=== PATIENT | male | born 1965 ===

== ENCOUNTER 2018-11-27 10:44 | Emergency (ER) | payer BC ==
[2018-11-27 10:49] VITALS: BMI 27.9
[2018-11-27 10:51] VITALS: RESP 18
--- NOTE | 2018-11-27 12:43 | C.PDOC ---
History Of Present Illness Patient is a 53 year old male who presents to the ED for evaluation of a fever of 101, sore throat and body aches. Patient reports that his sore throat began 3 days ago and he went to his PMD who gave him Levaquin which he started yesterday. He reports that today he had a fever of 99.2 and he took Motrin 800mg [employer]. He denies any cough, sinus congestion, CP, nausea, vomiting, diarrhea, constipation, neck pain, neck stiffness, or rash. Denies any urinary symptoms. No sick contacts or recent travel. Time Seen by Provider: 11/27/18 11:06 Chief Complaint (Nursing): Flu-like Symptoms History Per: Patient History/Exam Limitations: no limitations Onset/Duration Of Symptoms: Days (3) Current Symptoms Are (Timing): Still Present Associated Symptoms: Fever, Sore Throat, Nasal Congestion. denies: Neck Pain, Nausea, Vomiting, Diarrhea Recent travel outside of the [place]: No Additional History Per: Patient Past Medical History Reviewed: Historical Data, Nursing Documentation, Vital Signs Vital Signs: Last Vital Signs Temp 99.2 F 11/27/18 11:41 Pulse 105 H 11/27/18 10:49 Resp 18 11/27/18 10:49 BP 127/83 11/27/18 10:49 Pulse Ox 96 11/27/18 10:49 Primary Care Provider: Robert Saunders - Medical History PMH: No Chronic Diseases Surgical History: No Surg Hx Family History: States: No Known Family Hx - Social History Hx Alcohol Use: No Hx Substance Use: No - Immunization History Hx Influenza Vaccination: No Hx Pneumococcal Vaccination: No Review Of Systems Except As Marked, All Systems Reviewed And Found Negative. Constitutional: Positive for: Fever, Other (body aches) ENT: Positive for: Throat Pain. Negative for: Nose Congestion Cardiovascular: Negative for: Chest Pain Respiratory: Negative for: Cough Gastrointestinal: Negative for: Nausea, Vomiting, Diarrhea, Constipation Musculoskeletal: Negative for: Neck Pain Skin: Negative for: Rash Physical Exam - Physical Exam Appears: Well, Non-toxic, No Acute Distress Skin: Normal Color, Warm, Dry Head: Atraumatic, Normacephalic Eye(s): bilateral: Normal Inspection Nose: Normal Oral Mucosa: Moist Tongue: Normal Appearing, No Swelling Lips: Normal Appearing, No Swelling Throat: Erythema, No Exudate (tonsillar), Other (Tonsils swollen, uvula midline.) Neck: Normal, Normal ROM, Other (bilatral cervical lymphadenopathy) Chest: Symmetrical Cardiovascular: Rhythm Regular (slightly tachycardic) Respiratory: Normal Breath Sounds, No Rales, No Rhonchi, No Wheezing Gastrointestinal/Abdominal: Normal Exam, Soft, No Tenderness, No Distention, No Guarding, No Rebound Neurological/Psych: Oriented x3, Normal Speech, Normal Cognition ED Course And Treatment O2 Sat by Pulse Oximetry: 96 (on RA) Pulse Ox Interpretation: Normal Medical Decision Making Medical Decision Making: Plan: Tylenol 975mg PO Throat Culture Serology Influenza Serology Rapid Strep 11/27/18 1241 Patient reevaluated and updated on results thus far. Patient is a healthy, nontoxic appearing male complaining of x3 days of bodyaches and sore throat and 1 day of fever. Was started on levaquin by his PMD 1 day ago and is not feeling better. Flu and strep test negative. Patient does have tonsillar swelling and erythema without exudate. Will give augmentin PO. States he is feeling better s/p tylenol. Will follow-up with his PMD tomorrow. Will return with any worsening symptoms, persistent fevers or any new symptoms. Disposition Counseled Patient/Family Regarding: Studies Performed, Diagnosis, Need For Followup, Rx Given - Disposition Referrals: Robert Saunders [Staff Provider] - Disposition: HOME/ ROUTINE Disposition Time: 12:43 Condition: IMPROVED Additional Instructions: Follow-up with your PMD tomorrow. Return if symptoms worsen or persist. Prescriptions: Amoxicillin/Clavulanate [Augmentin 875 MG-125 MG] 1 tab PO BID 10 Days #20 tab Instructions: Sore Throat in Adults Forms: Work Excuse, Gen Discharge Inst Gabonese Print Language: GREENLANDIC - Clinical Impression Clinical Impression: Tonsillitis - PA / SENIOR HADOOP DEVELOPER / Resident Statement MD/DO has examined the patient and agrees with the treatment plan. - Scribe Statement The provider has reviewed the documentation as recorded by the Sindy Bundy All medical record entries made by the Scribe were at my direction and per sonally dictated by me. I have reviewed the chart and agree that the record accurately reflects my personal performance of the history, physical exam, medical decision making, and the department course for this patient. I have also personally directed, reviewed, and agree with the discharge instructions and disposition.
[2018-11-27 12:54] VITALS: BP 104/63; PULSE 78; TEMP 98.8
[2018-11-27 12:57] VITALS: O2SAT 96
== END 2018-11-27 12:54 | disposition home or self-care (01) ==
LOC: C.ER 10:44
DX: J03.90 Acute tonsillitis, unspecified (principal)